=== PATIENT | female | born 1945 | race Caucasian/White ===

== ENCOUNTER 2018-06-02 05:30 | Inpatient (IN) | payer MEDICARE, BC ==
[2018-06-02] MEDS: TRANEXAMIC ACID 1,000 MG in DEXTROSE 5% 100 ML IVPB (05:30)
[2018-06-02] MEDS ORDERED: BUPIVACAINE 0.5% (SDV) 30 ML, morphine SULFATE (PF) 8 MG, EPINEPHrine 0.3 MG, KETOROLAC... IRR (06:00)
[2018-06-02] MEDS: VANCOMYCIN 1 GM (PMX) 250 ML IVPB (06:01)
[2018-06-02] MEDS: DEXAMETHASONE 1 MG TAB PO (06:01)
[2018-06-02] MEDS: GABAPENTIN 300 MG CAP PO ×2 (06:02→20:51)
[2018-06-02] MEDS ORDERED: CA CHLORIDE (GM) 10% 10 ML INJ (06:44)
[2018-06-02] MEDS: POLYMYXIN/BACITRACIN 1L IRRIG (06:44)
[2018-06-02] MEDS ORDERED: THROMBIN (BOVINE) 5,000 UNIT VIAL TP (06:44)
[2018-06-02] MEDS ORDERED: morphine SULFATE/PF (10 MG/10 ML) INJ (07:00)
[2018-06-02] MEDS ORDERED: MIDAZOLAM 1 MG/ML 2 ML INJ (07:00)
[2018-06-02] MEDS ORDERED: FENTAnyl 50 MCG/ML VIAL (07:00)
[2018-06-02] MEDS: SOD CHLORIDE 0.9% 100 ML, TRANEXAMIC ACID 3,000 MG IRR (07:00)
[2018-06-02] MEDS ORDERED: METOCLOPRAMIDE 10 MG INJ (08:42)
[2018-06-02] MEDS ORDERED: ONDANSETRON 4 MG INJ (08:42)
[2018-06-02] MEDS ORDERED: LIDOCAINE 2% (SDV) 5 ML INJ (08:43)
[2018-06-02] MEDS ORDERED: ETOMIDATE 20 MG INJ (08:43)
[2018-06-02] MEDS ORDERED: NORETHINDRONE ACET PO (09:00)
[2018-06-02] MEDS ORDERED: SUMATRIPTAN 50 MG TAB PO (09:00)
[2018-06-02] MEDS: LOSARTAN 50 MG TAB PO (09:00)
[2018-06-02] MEDS ORDERED: TRIAMTERENE/HCTZ (37.5/25) TAB PO (09:00)
[2018-06-02] MEDS ORDERED: NACL 0.9% 3 ML SYG IV (09:00)
[2018-06-02] MEDS ORDERED: ESTRADIOL PO (09:00)
[2018-06-02] MEDS ORDERED: HYOSCYAMINE 0.125 MG SUBL TAB SL (09:00)
[2018-06-02] MEDS ORDERED: oxyCODONE 5 MG TAB PO ×3 (09:00)
[2018-06-02] MEDS ORDERED: [UNRECOGNIZED DRUG - OTHER] PO (09:00)
[2018-06-02] MEDS ORDERED: MAGNESIUM HYDROXIDE 30ML CUP PO (09:00)
[2018-06-02] MEDS ORDERED: HYDROmorphONE 1 MG/ML SYG IV (09:00)
[2018-06-02] MEDS ORDERED: ZOLPIDEM 5 MG TAB PO (09:00)
[2018-06-02] MEDS ORDERED: FENTAnyl 50 MCG/ML VIAL IV (09:30)
[2018-06-02] MEDS ORDERED: HYDROmorphONE 1 MG/5 ML IV SYRINGE IV ×2 (09:30)
[2018-06-02] MEDS ORDERED: ONDANSETRON 4 MG INJ IV (09:30)
[2018-06-02] MEDS ORDERED: DIPHENHYDRAMINE 50 MG INJ IV (09:30)
[2018-06-02] MEDS ORDERED: hydrALAzine 20 MG INJ IV (09:30)
[2018-06-02] MEDS ORDERED: METOCLOPRAMIDE 10 MG INJ IV (09:30)
[2018-06-02] MEDS ORDERED: MEPERIDINE 25 MG INJ IV (09:30)
[2018-06-02] MEDS ORDERED: LABETALOL HCL 20MG INJ IV (09:30)
[2018-06-02] MEDS: TRIAMTERENE/HCTZ (37.5/25) TAB PO (09:45)
[2018-06-02] MEDS: ALPRAZOLAM 0.25 MG TAB PO (09:47)
[2018-06-02] MEDS: ACETAMINOPHEN 1000MG/100ML IV 100 ML IVPB ×2 (09:51→16:37)
[2018-06-02] MEDS: SENNA/DOCUSATE NA (8.6MG/50MG) TAB PO ×2 (09:53→20:51)
[2018-06-02] MEDS: PANTOPRAZOLE (EC) 40 MG TAB PO (09:53)
[2018-06-02] MEDS: LACTATED RINGER'S 1,000 ML IV ×3 (09:58→18:47)
[2018-06-02] MEDS: DEXAMETHASONE 2 MG TAB PO ×2 (11:54→19:00)
[2018-06-02 13:10] LABS: ADD MAN DIFF? NO
[2018-06-02 13:12] LABS: WHITE BLOOD COUNT 15.2 10^3/ul (4.8-10.8)
[2018-06-02 13:12] LABS: ABNORMAL IP MESSAGE 1; BASOPHIL # 0.1 10^3/ul (0.0-0.1); BASOPHILS % 0.3 % (0.0-2.0); HEMOGLOBIN 11.6 g/dl (12.0-16.0); LYMPHOCYTES # 0.6 10^3/ul (0.8-2.9); LYMPHOCYTES % 3.9 % (15.0-51.0); MEAN CORPUSCULAR HEMOGLOBIN 27.9 pg (29.0-33.0); MEAN CORPUSCULAR HGB CONC 33.1 g/dl (32.0-37.0); MEAN CORPUSCULAR VOLUME 84.1 fl (82.0-101.0); MEAN PLATELET VOLUME 11.1 fl (7.4-10.4); MONOCYTE # 0.8 10^3/ul (0.3-0.9); MONOCYTES % 4.9 % (0.0-11.0); NEUTROPHIL # 13.8 10^3/ul (1.6-7.5); NEUTROPHILS % 90.4 % (39.0-77.0); PLATELET COUNT 278 10^3/UL (140-415); RED BLOOD COUNT 4.16 10^6/ul (4.20-5.40)
[2018-06-02 13:14] LABS: POSITIVE DIFF @See below
[2018-06-02] MEDS: ONDANSETRON 4 MG INJ IV ×2 (15:23→20:33)
[2018-06-02] MEDS: ATORVASTATIN 10 MG TAB PO (20:51)
[2018-06-02] MEDS: AMLODIPINE 5 MG TAB PO (20:52)
[2018-06-02] MEDS: DIPHENHYDRAMINE 50 MG INJ IV (20:52)
[2018-06-03] MEDS: DEXAMETHASONE 2 MG TAB PO ×2 (00:07→06:24)
[2018-06-03] MEDS: ACETAMINOPHEN 1000MG/100ML IV 100 ML IVPB (01:10)
[2018-06-03 04:46] LABS: ADD MAN DIFF? NO
[2018-06-03] MEDS: LACTATED RINGER'S 1,000 ML IV (04:47)
[2018-06-03 04:50] LABS: BASOPHILS % 0.1 % (0.0-2.0); HEMATOCRIT 32.5 % (37.0-47.0); HEMOGLOBIN 10.9 g/dl (12.0-16.0); LYMPHOCYTES # 0.8 10^3/ul (0.8-2.9); LYMPHOCYTES % 5.4 % (15.0-51.0); MEAN CORPUSCULAR HEMOGLOBIN 28.1 pg (29.0-33.0); MEAN CORPUSCULAR HGB CONC 33.5 g/dl (32.0-37.0); MEAN CORPUSCULAR VOLUME 83.8 fl (82.0-101.0); MEAN PLATELET VOLUME 11.3 fl (7.4-10.4); MONOCYTE # 0.9 10^3/ul (0.3-0.9); MONOCYTES % 6.3 % (0.0-11.0); NEUTROPHIL # 12.3 10^3/ul (1.6-7.5); NEUTROPHILS % 87.7 % (39.0-77.0); PLATELET COUNT 249 10^3/UL (140-415); RED BLOOD COUNT 3.88 10^6/ul (4.20-5.40); RED CELL DISTRIBUTION WIDTH 13.3 % (11.5-14.5)
[2018-06-03] MEDS: VANCOMYCIN 500 MG (PMX) 100 ML IVPB (06:25)
[2018-06-03] MEDS: PANTOPRAZOLE (EC) 40 MG TAB PO (09:57)
[2018-06-03] MEDS: SENNA/DOCUSATE NA (8.6MG/50MG) TAB PO (09:57)
[2018-06-03] MEDS: ASPIRIN (EC) 325 MG TAB PO (09:57)
[2018-06-03] MEDS: LOSARTAN 50 MG TAB PO (09:58)
[2018-06-03] MEDS: TRIAMTERENE/HCTZ (37.5/25) TAB PO (09:59)
[2018-06-03] MEDS: ACETAMINOPHEN 325 MG TAB PO (12:23)
[2018-06-04] MEDS ORDERED: MAGNESIUM HYDROXIDE 30ML CUP PO (21:00)
== END 2018-06-03 14:49 | disposition home or self-care (01) | DRG 470 ==
LOC: REC 05:30 → MS1 11:37
PROVIDERS: Orthopaedic Surgery
PROC: 0SRB04A Replacement of Left Hip Joint with Ceramic on Polyethylene Synthetic Substitute, Uncemented, Open Approach (ICD-10-PCS; principal; 2018-06-02 07:00)
DX: M16.12 Unilateral primary osteoarthritis, left hip (principal); I10 Essential (primary) hypertension; E78.5 Hyperlipidemia, unspecified
CPT/HCPCS: 72170; 73530; 85025; 86999; 87086; 88304; 88311; 97110; 97116; 97161